=== PATIENT | female | born 1980 | race Caucasian/White ===

== ENCOUNTER 2017-04-15 13:43 | Emergency (ER) | payer OTHER ==
[2017-04-15 13:56] VITALS: BP 113/82; PULSE 82; RESP 16; TEMP 98.3; O2SAT 99
--- NOTE | 2017-04-15 14:21 | ED PDOC ---
HPI: Female Pain Time Seen by Provider: 04/15/17 13:57 Chief Complaint (Nursing): Female Genitourinary Chief Complaint (Provider): Vaginal bleeding History Per: Patient History/Exam Limitations: no limitations Onset/Duration Of Symptoms: Days (x2) Current Symptoms Are (Timing): Still Present Additional Complaint(s): Halle Waller is a 6 week 36 year old female, with a past history of miscarriage, who presents to the emergency department complaining of vaginal bleeding onset for 2 days. Patient reports no prior ultrasound to confirm IUP. Denies abdominal pain. Denies dysuria, nausea/vomiting, constipation or diarrhea PMD: Carson Daniels Past Medical History Reviewed: Historical Data, Nursing Documentation, Vital Signs Vital Signs: Last Vital Signs Temp 98.3 F 04/15/17 13:54 Pulse 82 04/15/17 13:54 Resp 16 04/15/17 13:54 BP 113/82 04/15/17 13:54 Pulse Ox 99 04/15/17 13:54 - Family History Family History: States: Unknown Family Hx - Social History Current smoker - smoking cessation education provided: No Alcohol: None Drugs: Denies - Allergies Allergies/Adverse Reactions: Allergies Allergy/AdvReac Type Severity Reaction Status Date / Time No Known Allergies Allergy Verified 04/15/17 13:54 Review of Systems ROS Statement: Except As Marked, All Systems Reviewed And Found Negative Constitutional: Negative for: Fever, Chills Cardiovascular: Negative for: Chest Pain Respiratory: Negative for: Cough, Shortness of Breath, SOB with Exertion Gastrointestinal: Negative for: Nausea, Vomiting, Abdominal Pain, Diarrhea, Constipation Genitourinary Female: Positive for: Vaginal Bleeding (spotting). Negative for: Dysuria, Frequency, Hematuria, Pelvic Pain Neurological: Negative for: Weakness, Numbness, Headache Physical Exam - Reviewed Nursing Documentation Reviewed: Yes Vital Signs Reviewed: Yes - Physical Exam Appears: Positive for: Well, Non-toxic, No Acute Distress Head Exam: Positive for: ATRAUMATIC, NORMAL INSPECTION, NORMOCEPHALIC Skin: Positive for: Normal Color, Warm, Dry Eye Exam: Positive for: EOMI, Normal appearance, PERRL ENT: Positive for: Normal ENT Inspection Neck: Positive for: Normal, Painless ROM, Supple Cardiovascular/Chest: Positive for: Regular Rate, Rhythm. Negative for: Murmur Respiratory: Positive for: Normal Breath Sounds. Negative for: Rales, Rhonchi, Stridor, Respiratory Distress Gastrointestinal/Abdominal: Positive for: Normal Exam, Bowel Sounds, Soft. Negative for: Tenderness, Distended Pelvic Exam: Negative for: Speculum Exam Normal (external os closed with large amount of clot in vault, clots removed.), No Cerv. Motion Tender Back: Positive for: Normal Inspection. Negative for: L CVA Tenderness, R CVA Tenderness Extremity: Positive for: Normal ROM. Negative for: Tenderness Neurologic/Psych: Positive for: Alert, Oriented. Negative for: Motor/Sensory Deficits - Laboratory Results Result Diagrams: 04/15/17 14:20 04/15/17 14:20 - ECG O2 Sat by Pulse Oximetry: 99 (RA) Pulse Ox Interpretation: Normal Medical Decision Making Medical Decision Making: Initial Impression: 36 y/o female with vaginal bleeding Initial Plan: --Type and screen --Beta-HCG, quantitative --Comp Metabolic Panel --CBC w/ differential --Urinalysis --OB Transvaginal [US] --reevaluation Scribe Attestation: Documented by Galo Jin, acting as a scribe for Bella Baltazar MD. Provider Scribe Attestation: All medical record entries made by the Scribe were at my direction and personally dictated by me. I have reviewed the chart and agree that the record accurately reflects my personal performance of the history, physical exam, medical decision making, and the department course for this patient. I have also personally directed, reviewed, and agree with the discharge instructions and disposition. 1. Single intrauterine gestational sac with mean gestational age of 5 weeks and 4 days. Yolk sac is visualized. pole is not identified on this examination likely due to early gestation, follow-up is advised to confirm viability. Estimated date of delivery by ultrasound is 12/12/2017. There is a discrepancy with the clinical dates, which lag behind by 9 days. Clinical follow -up is advised. 2. 1.6 x 1.3 x 1.5 cm intramural fibroid in the anterior wall of the uterus and 1.1 x 0.5 x 1.0 cm submucosal fibroid in the anterior wall. 3. Heterogeneous area within the endocervical canal is nonspecific and could represent evolving blood products. Clinical follow-up is advised. Blood type is O+. BHCG>12,000. Patient instructed to follow-up with advisory intern within 2 days. Disposition - Clinical Impression Clinical Impression: Threatened - Disposition Disposition: Routine/Home Disposition Time: 15:32 Condition: GOOD Additional Instructions: You must follow-up with your associate chemist within 2 days. Return to ED if condition worsens. Your bhcg today was 12,000 Instructions: Threatened Miscarriage (ED) Forms: Change Lane (Latvian)
[2017-04-15 14:53] LABS: ALB/GLOB RATIO 1.4 (1.0-2.1); ALKALINE PHOSPHATASE 67 U/L (38-126); ALT/SGPT 39 U/L (9-52); AST/SGOT 26 U/L (14-36); BILIRUBIN,TOTAL 0.4 mg/dl (0.2-1.3); BLOOD UREA NITROGEN 14 mg/dl (7-17); CALCIUM 9.4 mg/dL (8.4-10.2); CARBON DIOXIDE 19 mmol/L (22-30); CHLORIDE 104 mmol/L (98-107); GFR AFRICAN-AMERICAN > 60; GLUCOSE,RANDOM 94 mg/dL (65-105); POTASSIUM 3.6 MMOL/L (3.6-5.0); SODIUM 136 mmol/l (132-148); TOTAL PROTEIN 7.6 G/DL (6.3-8.2)
[2017-04-15 14:55] LABS: BASO % 0.3 % (0.0-2.0); EOS # 0.3 K/uL (0.0-0.7); EOS % 2.2 % (0.0-4.0); HEMATOCRIT 37.6 % (34.0-47.0); LYMPH # 2.5 K/uL (1.0-4.3); LYMPH % 21.5 % (20.0-40.0); MEAN CELL VOLUME 89.4 fl (81.0-99.0); MEAN CORPUSCULAR HEMOGLOBIN 29.8 pg (27.0-31.0); MEAN CORPUSCULAR HGB CONC 33.3 g/dL (33.0-37.0); MEAN PLATELET VOLUME 7.2 fl (7.2-11.7); MONO # 0.8 K/uL (0.0-0.8); NEUT # 8.1 K/uL (1.8-7.0); NRBC % 0.1 % (0.0-0.0); RED CELL DISTRIBUTION WIDTH 12.7 % (11.5-14.5); WHITE BLOOD COUNT 11.8 K/uL (4.8-10.8)
--- NOTE | 2017-04-15 15:29 | US ---
PROCEDURE: OB Pelvic Ultrasound HISTORY: vaginal bleeding, COMPARISON: None available. FINDINGS: UTERUS: Gestational sac: Single intrauterine gestational sac. Yolk sac is visualized. pole is not identified on the current examination. . age (Ultrasound estimated): 5 weeks and 4 days Lisa-gestational hemorrhage: None. Date of delivery (Ultrasound estimated) : 12/12/2017 Uterus measures 11.6 x 5.6 x 7.3 cm. There is a 1.6 x 1.3 x 1.5 cm intramural fibroid in the anterior wall and a 1.1 x 0.5 x 1.0 cm submucosal fibroid in the anterior wall. CERVIX: Long and closed. There is a small nabothian cyst in the posterior wall of the cervix. There is heterogeneous echotexture within the endocervical canal. RIGHT OVARY: Measures 2.0 x 1.2 x 1.2 cm. No mass lesion. Normal flow. LEFT OVARY: Measures 2.5 x 2.5 x 2.5 cm. No solid mass. Normal flow. FREE FLUID: None. OTHER FINDINGS: None. IMPRESSION: 1. Single intrauterine gestational sac with mean gestational age of 5 weeks and 4 days. Yolk sac is visualized. pole is not identified on this examination likely due to early gestation, follow-up is advised to confirm viability. Estimated date of delivery by ultrasound is 12/12/2017. There is a discrepancy with the clinical dates, which lag behind by 9 days. Clinical follow-up is advised. 2. 1.6 x 1.3 x 1.5 cm intramural fibroid in the anterior wall of the uterus and 1.1 x 0.5 x 1.0 cm submucosal fibroid in the anterior wall. 3. Heterogeneous area within the endocervical canal is nonspecific and could represent evolving blood products. Clinical follow-up is advised.
== END 2017-04-15 16:27 | disposition home or self-care (01) ==
LOC: H.ER 13:43
DX: O20.0 Threatened abortion (principal); Z3A.01 Less than 8 weeks gestation of pregnancy; O09.91 Supervision of high risk pregnancy, unspecified, first trimester

== ENCOUNTER 2017-05-23 07:56 | Day surgery (SDC) | payer OTHER ==
[2017-05-21 11:09] VITALS: BMI 28.0
[2017-05-23 08:50] LABS: HEMATOCRIT 36.9 % (34.0-47.0); MEAN CELL VOLUME 87.8 fl (81.0-99.0); MEAN CORPUSCULAR HEMOGLOBIN 30.8 pg (27.0-31.0); MEAN CORPUSCULAR HGB CONC 35.1 g/dL (33.0-37.0); RED CELL DISTRIBUTION WIDTH 12.6 % (11.5-14.5); WHITE BLOOD COUNT 9.7 K/uL (4.8-10.8)
[2017-05-23] MEDS ORDERED: Lactated Ringer's 1,000 ML IV ONE (09:15)
[2017-05-23] MEDS ORDERED: Midazolam 2 MG/2 ML VIAL ONE (09:55)
[2017-05-23] MEDS ORDERED: Propofol 10 mg/ml Inj (20 ML) ONE (09:55)
[2017-05-23] MEDS ORDERED: Lidocaine 1% 5ml Abboject IV ONE (09:56)
[2017-05-23] MEDS ORDERED: Lidocaine 2% Jelly (5 ml) TOP ONE (09:56)
[2017-05-23] MEDS ORDERED: Dexamethasone 4 mg/1 ml ONE (09:56)
--- NOTE | 2017-05-23 10:14 | CP.SDSHP ---
Same Day Surgery H & P - History Proposed Procedure: D&C Pre-Op Diagnosis: Missed - Allergies Allergies: Allergies No Known Allergies Allergy (Verified 04/15/17 13:54) - Physical Exam Vital Signs: Vital Signs 05/23/17 05/23/17 08:24 08:26 Temperature 97.6 F Pulse Rate 86 86 Respiratory 20 Rate Blood Pressure 110/65 O2 Sat by Pulse 97 Oximetry Mental Status: Alert & Oriented x3 Neuro: WNL Heart: WNL Lungs: WNL GI: WNL - {Optional Preform as Required} Abdomen: WNL VAT CLEANER: WNL - Impression Impression: Missed Ab Pt. Evaluated Today:Candidate for Anesthesia & Procedure: Yes - Date & Time Date: 05/23/17 Time: 10:10 (Procedure with risks/complciatoins discussed. Infromed consent obtained) Short Stay Discharge - Short Stay Discharge Admitting Diagnosis/Reason for Visit: O02.1 Disposition: HOME/ ROUTINE Referrals: FAMILY PROVIDER,NO [Primary Care Provider] -
[2017-05-23] MEDS ORDERED: ceFAZolin 1 GM in Sodium Chloride 0.9% 100 ML IVPB ONE (10:30)
[2017-05-23] MEDS ORDERED: ceFAZolin IV 1 gm in Dextrose 1 GM/50 ML BAG IVPB ONE (10:31)
[2017-05-23] MEDS ORDERED: Silver Nitrate Topical - Stick ONE (11:02)
[2017-05-23] MEDS ORDERED: Ferric Subsulfate Sol(60 mL) ONE (11:02)
[2017-05-23] MEDS ORDERED: Oxycodone/Acetaminophen 5/325 mg Tab PO PRN (11:20)
[2017-05-23] MEDS ORDERED: HYDROmorphone 0.5 mg/0.5 ml ISec IVP PRN (11:21)
[2017-05-23] MEDS ORDERED: Lactated Ringer's 1,000 ML IV SCH (11:30)
--- NOTE | 2017-05-23 11:30 | PCM.SURG1 ---
Surgeon's Initial Post Op Note - Surgeon's Notes Surgeon: Mecca Daniels DO Sueding And Buffing Machine Operator: none Type of Anesthesia: General LMA Anesthesia Administered By: Dr Watkins Pre-Operative Diagnosis: Missed Operative Findings: Uterus - 8w size. POC obtained Post-Operative Diagnosis: Same Operation Performed: Suction D&C Specimen/Specimens Removed: Products of conception Estimated Blood Loss: EBL {In ML}: 20 Blood Products Given: N/A Drains Used: No Drains Post-Op Condition: Good Date of Surgery/Procedure: 05/23/17 Time of Surgery/Procedure: 10:30
--- NOTE | 2017-05-23 11:33 | CP.PCM.DIS ---
Provider - Provider Date of Admission: May 23, 2017 Attending physician: Carson Daniels DO Primary care physician: NO FAMILY PROVIDER Time Spent in preparation of Discharge (in minutes): 5 Diagnosis - Discharge Diagnosis (1) Missed Status: Acute Hospital Course - Lab Results Lab Results: Most Recent Lab Values WBC 9.7 K/uL (4.8-10.8) 05/23/17 08:20 RBC 4.20 Mil/uL (3.80-5.20) 05/23/17 08:20 Hgb 13.0 g/dL (12.0-16.0) 05/23/17 08:20 Hct 36.9 % (34.0-47.0) 05/23/17 08:20 MCV 87.8 fl (81.0-99.0) 05/23/17 08:20 MCH 30.8 pg (27.0-31.0) 05/23/17 08:20 MCHC 35.1 g/dL (33.0-37.0) 05/23/17 08:20 RDW 12.6 % (11.5-14.5) 05/23/17 08:20 Plt Count 266 K/uL (130-400) 05/23/17 08:20 Blood Type O POSITIVE 05/23/17 08:20 Antibody Screen Negative 05/23/17 08:20 BBK History Checked Patient has bt 05/23/17 08:20 - Hospital Course Hospital Course: D&C done - Date & Time of H&P Date of H&P: 05/23/17 Time of H&P: 10:10 Discharge Exam - Head Exam Head Exam: NORMAL INSPECTION - GI/Abdominal Exam GI & Abdominal Exam: Soft - Exam Exam: NORMAL INSPECTION External exam: NORMAL EXTERNAL EXAM Discharge Plan - Follow Up Plan Condition: GOOD Disposition: HOME/ ROUTINE Patient education suggested?: No Referrals: FAMILY PROVIDER,NO [Primary Care Provider] -
[2017-05-23 12:37] VITALS: RESP 18
[2017-05-23 12:44] VITALS: PULSE 72
[2017-05-23 13:34] VITALS: BP 135/63; TEMP 98; O2SAT 98
--- NOTE | 2017-05-23 20:27 | OP ---
PROCEDURE DATE: 05/23/2017 PREOPERATIVE DIAGNOSIS: Missed . POSTOPERATIVE DIAGNOSIS: Missed . OPERATIVE FINDINGS: Uterus approximately 8 weeks in size, products of conception obtained, minimal amount of bleeding noted. SURGEON: Carson Daniels DO S3B MULTI SENSOR OPERATOR: None. ANESTHESIA ADMINISTERED BY: Deion Watkins MD. TYPE OF ANESTHESIA: General LMA. PROCEDURE: Suction, dilatation, and curettage. SPECIMENS: Products of conception (the patient requested that these products of conception get tested for karyotype/chromosome studies). ESTIMATED BLOOD LOSS: 20 mL. No blood products given. DRAINS: None. POSTOPERATIVE CONDITION: Good. DESCRIPTION OF PROCEDURE: Halle was brought to the operating room. She was placed in the supine position, after successful induction of general LMA by Dr. Watkins. Compression boots were placed on both lower extremities. She was then placed in a lithotomy position. She was then draped and prepped in the usual sterile manner. Attention was drawn to the perineal area. She was draped and prepped. Catheter was used to drain the bladder of its contents. Exam under anesthesia was performed and the above findings were noted. Weighted speculum was placed in the posterior fornix of the vagina, right-angle retractor in the anterior fornix of the vagina to visualize the cervix. Cervix was grasped at the 12 o'clock position using a single tooth tenaculum. Thereafter, cervix was noted to be open about 1 cm. Scant blood noted. Using a 7 mm curette, suction and curetting was performed - two passes, good contraction of the uterus was noted as well as some blood noted. IM Methergine 0.2 mg was given intraoperatively. Also, one pass using a sharp curette was done to obtain remainder of the specimen. This suction, dilation and curettage was done with ultrasound guidance intraoperatively. All equipments were removed and accounted for. Some bleeding was noted at 12 o'clock position at the site of the single tooth tenaculum. Silver nitrate was applied, also a 2-0 Vicryl suture was placed in a [id number] fashion. Good hemostasis assured. All equipments were removed and accounted for. She was given IV Ancef 1 g preoperatively. She is scheduled to follow up at the office in 2 to 3 weeks postop. She already has pain medication, Tylenol #3, at home. Carson Daniels DO [facility] # [id number] KRISTA
== END 2017-05-23 14:15 | disposition home or self-care (01) ==
LOC: H.OPSURG 07:56
PROVIDERS: ATTEND Obstetrics & Gynecology
DX: O02.1 Missed abortion (principal)
CPT/HCPCS: 36415; 59820; 85027; 86850; 86900; 88300; 88305; J0690; J1100; J2210; J2250; J2704; J2765; J3010; J7030; J7120